=== PATIENT | female | born 1950 | race Caucasian/White ===

== ENCOUNTER 2018-01-11 07:11 | Day surgery (SDC) | payer OTHER, MEDICAID ==
[~2018-01-11 07:11] MED LIST: DEXAMETHASONE 4 MG/ML 1 ML INJ; METOCLOPRAMIDE 10 MG INJ
[2018-01-11] MEDS: LACTATED RINGER'S 1,000 ML IV* (08:00)
[2018-01-11] MEDS ORDERED: LIDOCAINE 1% (MPF) 30 ML INJ (08:32)
[2018-01-11] MEDS ORDERED: BUPIVACAINE 0.5% (SDV) 30 ML INJ (08:32)
[2018-01-11] MEDS ORDERED: CLINDAMYCIN 900 MG/D5W (PMX) 50 ML IVPB (09:00)
[2018-01-11] MEDS ORDERED: PROPOFOL 20 ML (09:07)
[2018-01-11] MEDS ORDERED: ONDANSETRON 4 MG INJ (09:07)
[2018-01-11] MEDS ORDERED: MIDAZOLAM 1 MG/ML 2 ML INJ (09:07)
[2018-01-11] MEDS ORDERED: LIDOCAINE 2% (SDV) 5 ML INJ (09:07)
[2018-01-11] MEDS ORDERED: ROPIVACAINE 0.5 % 30 ML VIAL (09:07)
[2018-01-11] MEDS ORDERED: FENTAnyl 50 MCG/ML VIAL (09:07)
[2018-01-11] MEDS ORDERED: LABETALOL HCL 20MG INJ IV (10:00)
[2018-01-11] MEDS ORDERED: hydrALAzine 20 MG INJ IV (10:00)
[2018-01-11] MEDS ORDERED: HYDROmorphONE 1 MG/5 ML IV SYRINGE IV (10:00)
[2018-01-11] MEDS ORDERED: ONDANSETRON 4 MG INJ IV (10:00)
[2018-01-11] MEDS ORDERED: DIPHENHYDRAMINE 50 MG INJ IV (10:00)
[2018-01-11] MEDS ORDERED: IPRATROPIUM (NEB) 0.5 MG/2.5 ML AMP HHN (10:00)
[2018-01-11] MEDS ORDERED: FENTAnyl 50 MCG/ML VIAL IV (10:00)
== END 2018-01-11 14:40 | disposition home or self-care (01) ==
LOC: SDS 07:11
DX: M24.842 Other specific joint derangements of left hand, not elsewhere classified (principal); M13.842 Other specified arthritis, left hand; I10 Essential (primary) hypertension; E78.5 Hyperlipidemia, unspecified; I50.9 Heart failure, unspecified; J44.9 Chronic obstructive pulmonary disease, unspecified; M06.9 Rheumatoid arthritis, unspecified
CPT/HCPCS: 26437; 73130-LT

== ENCOUNTER 2018-11-08 12:42 | Day surgery (SDC) | payer OTHER, MEDICAID ==
[~2018-11-08 12:42] MED LIST changes: +CLINDAMYCIN 900 MG/D5W (PMX) 50 ML IVPB; -DEXAMETHASONE 4 MG/ML 1 ML INJ; +LACTATED RINGER'S 1,000 ML IV; -METOCLOPRAMIDE 10 MG INJ
[2018-11-08 13:32] LABS: ADD MAN DIFF? NO
[2018-11-08 13:36] LABS: BASOPHILS % 0.6 % (0.0-2.0); EOSINOPHILS # 0.1 10^3/ul (0.0-0.5); EOSINOPHILS % 1.9 % (0.0-7.0); HEMATOCRIT 35.9 % (37.0-47.0); HEMOGLOBIN 11.6 g/dl (12.0-16.0); LYMPHOCYTES # 0.7 10^3/ul (0.8-2.9); LYMPHOCYTES % 15.4 % (15.0-51.0); MEAN CORPUSCULAR HEMOGLOBIN 27.6 pg (29.0-33.0); MEAN CORPUSCULAR HGB CONC 32.3 g/dl (32.0-37.0); MEAN CORPUSCULAR VOLUME 85.5 fl (82.0-101.0); MEAN PLATELET VOLUME 8.7 fl (7.4-10.4); MONOCYTE # 0.4 10^3/ul (0.3-0.9); NEUTROPHIL # 3.5 10^3/ul (1.6-7.5); NEUTROPHILS % 72.7 % (39.0-77.0); PLATELET COUNT 277 10^3/UL (140-415); RED CELL DISTRIBUTION WIDTH 16.1 % (11.5-14.5)
[2018-11-08 13:36] LABS: WHITE BLOOD COUNT 4.8 10^3/ul (4.8-10.8)
[2018-11-08 13:55] LABS: INR 1.01; PARTIAL THROMBOPLASTIN TIME 26.9 Sec (23.0-35.0); PROTIME 13.4 Sec (11.9-14.9)
[2018-11-08 13:59] LABS: ANION GAP 6 (5-13); BLOOD UREA NITROGEN 10 mg/dl (7-20); CALCIUM 9.3 mg/dl (8.4-10.2); CARBON DIOXIDE 28 mmol/L (21-31); CHLORIDE 104 mmol/L (97-110); CREATININE 0.62 mg/dl (0.44-1.00); Estimated GFR > 60 mL/min (>60); GLUCOSE 103 mg/dl (70-220); POTASSIUM 3.9 mmol/L (3.5-5.1); SODIUM 138 mmol/L (135-144)
[2018-11-08] MEDS: LIDOCAINE 1% (MPF) 30 ML INJ INJ (14:21)
[2018-11-08] MEDS ORDERED: CEFAZOLIN 1 GM INJ (14:51)
[2018-11-08] MEDS ORDERED: PROPOFOL 20 ML (14:51)
[2018-11-08] MEDS ORDERED: ROCURONIUM 50 MG INJ (14:51)
[2018-11-08] MEDS ORDERED: MIDAZOLAM 1 MG/ML 2 ML INJ (14:52)
[2018-11-08] MEDS ORDERED: FENTAnyl 50 MCG/ML VIAL (14:52)
[2018-11-08] MEDS ORDERED: ROPIVACAINE 0.2% 20 ML VIAL (14:52)
[2018-11-08] MEDS ORDERED: LIDOCAINE 1% (MPF) 30 ML INJ (15:00)
[2018-11-08] MEDS ORDERED: BUPIVACAINE 0.5% (SDV) 30 ML INJ (15:00)
[2018-11-08] MEDS ORDERED: KETOROLAC 30 MG INJ (16:39)
[2018-11-08] MEDS ORDERED: DEXAMETHASONE 4 MG/ML 5 ML INJ (16:39)
[2018-11-08] MEDS ORDERED: ONDANSETRON 4 MG INJ (16:39)
[2018-11-08] MEDS ORDERED: METOCLOPRAMIDE 10 MG INJ (16:40)
[2018-11-08] MEDS ORDERED: VANCOMYCIN 1 GM (PMX) 250 ML (17:13)
== END 2018-11-08 19:31 | disposition home or self-care (01) ==
LOC: SDS 12:42
DX: T84.89XA Other specified complication of internal orthopedic prosthetic devices, implants and grafts, initial encounter (principal); Y79.3 Surgical instruments, materials and orthopedic devices (including sutures) associated with adverse incidents; Y83.8 Other surgical procedures as the cause of abnormal reaction of the patient, or of later complication, without mention of misadventure at the time of the procedure; S66.317A Strain of extensor muscle, fascia and tendon of left little finger at wrist and hand level, initial encounter; S66.313A Strain of extensor muscle, fascia and tendon of left middle finger at wrist and hand level, initial encounter; S66.315A Strain of extensor muscle, fascia and tendon of left ring finger at wrist and hand level, initial encounter; X58.XXXA Exposure to other specified factors, initial encounter; I10 Essential (primary) hypertension
CPT/HCPCS: 26437; 71045; 73130-LT; 80048; 85025; 85610; 85730; 88300; 93005